=== PATIENT | male | born 1980 | race Caucasian/White ===

== ENCOUNTER 2019-04-13 03:16 | Emergency (ER) | payer OTHER ==
[2019-04-13] MEDS ORDERED: LIDOCAINE 1% W/EPI 1:100,000 MDV 50 ML VIAL ONE (04:13)
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
--- NOTE | 2019-04-13 04:58 | EDPHYS ---
Physician Documentation [facility] Name: Johnathan James Age: 38 yrs Sex: Male : 1980 Arrival Date: 04/13/2019 Time: 03:31 Bed 18 Private MD: ED Physician Js Humphrey HPI: 04/13 04:31 This 38 yrs old Male presents to ER via EMS with complaints of ankle injury, gs puncture wound r knee. 04:31 The patient presents with an injury. The complaints affect the anterior aspect of right gs ankle. Context: resulted from twisting of the extremity. Onset: The symptoms/episode began/occurred acutely. Modifying factors: The symptoms are alleviated by nothing. the symptoms are aggravated by movement. Associated signs and symptoms: Pertinent positives: puncture r knee on glass shards. Severity of symptoms: At their worst the symptoms were moderate, in the emergency department the symptoms are unchanged. The patient has not experienced similar symptoms in the past. Historical: - Allergies: 03:15 No Known Allergies; jb4 - Home Meds: 03:15 Levoxyl Oral [Active]; testosterone injection [Active]; calcitriol oral oral [Active]; jb4 - PMHx: 03:15 low testosterone; thyroid cancer; right ankle injury; jb4 - PSHx: 03:15 Thyroidectomy; jb4 - Immunization history:: Adult Immunizations up to date, Last tetanus immunization: up to date. - Social history:: Smoking status: Patient uses tobacco products, chewing tobacco, Patient uses alcohol, but reports only rare drinking. - Ebola Screening: : No symptoms or risks identified at this time. ROS: 04:31 All other systems are negative. gs Exam: 04:31 Head/Face: Normocephalic, atraumatic. Eyes: Pupils equal round and reactive to light, gs extra-ocular motions intact. Lids and lashes normal. Conjunctiva and sclera are non-icteric and not injected. Cornea within normal limits. Periorbital areas with no swelling, redness, or edema. ENT: Nares patent. No nasal discharge, no septal abnormalities noted. Tympanic membranes are normal and external auditory canals are clear. Oropharynx with no redness, swelling, or masses, exudates, or evidence of obstruction, uvula midline. Mucous membranes moist. Neck: Trachea midline, no thyromegaly or masses palpated, and no cervical lymphadenopathy. Supple, full range of motion without nuchal rigidity, or vertebral point tenderness. No Meningismus. Chest/axilla: Normal chest wall appearance and motion. Nontender with no deformity. No lesions are appreciated. Cardiovascular: Regular rate and rhythm with a normal S1 and S2. No gallops, murmurs, or rubs. Normal PMI, no JVD. No pulse deficits. Respiratory: Lungs have equal breath sounds bilaterally, clear to auscultation and percussion. No rales, rhonchi or wheezes noted. No increased work of breathing, no retractions or nasal flaring. Abdomen/GI: Soft, non-tender, with normal bowel sounds. No distension or tympany. No guarding or rebound. No evidence of tenderness throughout. Back: No spinal tenderness. No costovertebral tenderness. Full range of motion. 04:31 Neuro: Awake and alert, GCS 15, oriented to person, place, time, and situation. Cranial nerves II-XII grossly intact. Motor strength 5/5 in all extremities. Sensory grossly intact. Cerebellar exam normal. Normal gait. 04:31 Constitutional: The patient appears alert, awake. 04:31 Musculoskeletal/extremity: ROM: no acute changes, Circulation is intact in all extremities. Sensation intact. Joints: the right ankle displays swelling, tenderness. 04:31 Skin: injury, laceration(s), the wound is approximately 0.5 cm(s), with a depth of 0.25 cm(s), of the right elbow, the second wound is approximately 2 cm(s), with a depth of 1 cm(s), of the medial aspect of right knee. Vital Signs: 03:15 BP 130 / 86; Pulse 104; Resp 16; Temp 100.0(O); Pulse Ox 95% on R/A; Weight 139.71 kg jb4 (R); Height 5 ft. 10 in. (177.80 cm) (R); Pain 5/10; 04:30 BP 129 / 72; Pulse 96; Resp 16; Pulse Ox 96% on R/A; jb4 05:12 BP 133 / 79; Pulse 99; Resp 16; Temp 98.6(O); Pulse Ox 97% on R/A; jb4 03:15 Body Mass Index 44.19 (139.71 kg, 177.80 cm) jb4 Laceration: 04:53 Wound Repair of 2cm ( 0.8in ) subcutaneous laceration to medial aspect of right knee. gs Irregularly shaped.. Possible foreign body or glass noted.. Distal neuro/vascular/tendon intact. Anesthesia: Wound infiltrated with 3 mls of 1% lidocaine w/ Epi. Wound prep: Simple cleansing, Moderate cleansing, Wound irrigation by me, Particulate matter removal of glass, Copious irrigation. Skin closed with 1 4-0 Prolene using vertical mattress sutures and sterile technique. Dressed with 4x4's. Patient tolerated well. MDM: 03:38 Patient medically screened. gs 04:31 Differential diagnosis: sprain,laceration puncture, retained fb. Data reviewed: vital gs signs, nurses notes, radiologic studies, plain films, small shards on knee xray. 04:53 Counseling: I had a detailed discussion with the patient and/or guardian regarding: the gs historical points, exam findings, and any diagnostic results supporting the discharge/admit diagnosis. Response to treatment: the patient's symptoms have markedly improved after treatment, and as a result, I will discharge patient. 04/13 03:38 Order name: Ankle Right 3 View XRAY 04/13 03:38 Order name: Knee Right 3 View XRAY Administered Medications: 04:45 Drug: Lidocaine-Epinephrine -1%: (1:100,000) 5 ml {Note: administered by Ed provider.} jb4 Volume: 20 ml; Route: Infiltration; 05:14 Follow up: Response: No adverse reaction jb4 Disposition: 04/13/19 04:56 Discharged to Home. Impression: Sprain of ankle, Puncture wound with foreign body, right lower leg. - Condition is Stable. - Discharge Instructions: Ankle Sprain, Laceration Care, Adult. - Work release form, Medication Reconciliation Form, Thank You Letter, Antibiotic Education, Prescription Opioid Use form. - Follow up: Private Physician; When: 2 - 3 days; Reason: Re-evaluation by your physician. - Notes: sutures out 7-10 days Signatures: Dispatcher [employer] EDMS Yves Voss RN RN jb4 Js Humphrey MD MD Corrections: (The following items were deleted from the chart) 05:15 04:56 04/13/2019 04:56 Discharged to Home. Impression: Sprain of ankle; Puncture wound jb4 with foreign body, right lower leg. Condition is Stable. Forms are Medication Reconciliation Form, Thank You Letter, Antibiotic Education, Prescription Opioid Use. Follow up: Private Physician; When: 2 - 3 days; Reason: Re-evaluation by your physician. gs
--- NOTE | 2019-04-13 09:03 | RAD REPORT ---
EXAM DESCRIPTION: RAD - Ankle Right 3 View - 04/13/2019 4:20 am CLINICAL HISTORY: Ankle pain following trauma and twisting injury COMPARISON: None. FINDINGS: No fracture, dislocation or periosteal reaction. No joint effusion seen. No joint space na rrowing. Prominent for age plantar spur is present. There is a small spur at the Achilles attachment. No air or foreign body in the soft tissues. IMPRESSION: No fracture or acute bone findings seen. The calcaneus shows prominent plantar spur with small spur at the Achilles tendon attachment.
--- NOTE | 2019-04-13 09:06 | RAD REPORT ---
EXAM DESCRIPTION: RAD - Knee Right 3 View - 04/13/2019 4:20 am CLINICAL HISTORY: Fall, laceration anterior knee COMPARISON: None. FINDINGS: No fracture, dislocation or periosteal reaction.No joint effusion seen. No joint space tawana rowing. Puncture wound is evident in the soft tissues anterior to the patella tendon. There are soft tissue a ir densities deep to the patella tendon. Positioning in the patella is normal. Full-thickness disrupt ion of the patella tendon is not identifiable. On the lateral view there are several punctate foreign bodies in the laceration site along the anterior margin of the patella tendon. Plain film findings d o not indicate any extension into the joint space. IMPRESSION: No acute bone finding. Multiple punctate foreign bodies at the anterior margin of the puncture site. Soft tissue air densities are present superficial and deep to the patella tendon without evidence for a full-thickness patella tendon disruption. Intra-articular extension is not suspected on plain film . Clinical concerns for internal derangement, patella tendon injury or intra-articular extension of pun cture can be addressed with MR imaging.
== END 2019-04-13 05:15 | disposition home or self-care (01) ==
LOC: ER 03:16
PROC: 0JQN0ZZ Repair Right Lower Leg Subcutaneous Tissue and Fascia, Open Approach (ICD-10-PCS; principal; 2019-04-13)
DX: S51.011A Laceration without foreign body of right elbow, initial encounter (principal); S81.031A Puncture wound without foreign body, right knee, initial encounter; W01.110A Fall on same level from slipping, tripping and stumbling with subsequent striking against sharp glass, initial encounter; S93.401A Sprain of unspecified ligament of right ankle, initial encounter; X50.1XXA Overexertion from prolonged static or awkward postures, initial encounter
CPT/HCPCS: 99284

== ENCOUNTER 2019-10-27 11:53 | Emergency (ER) | payer OTHER ==
[2019-10-27] MEDS ORDERED: NA CHLORIDE 0.9% 1,000 ML ONE (12:41)
[2019-10-27 12:54] LABS: Urine Blood NEGATIVE (NEG); Urine Glucose 2+ (NEG); Urine Protein NEGATIVE (NEG); Urine pH 6.5 (5.0-7.0)
[2019-10-27 12:54] LABS: Absolute Lymphocytes (CBC) 1.9 K/uL (0.7-4.9); Basophils % 0.3 % (0-1.3); Hematocrit 42.7 % (39.6-49.0); Lymphocytes % 28.4 % (15.3-44.8); RBC Red Blood Cell Count 4.92 M/uL (4.33-5.43)
[2019-10-27 13:16] LABS: BUN Blood Urea Nitrogen 16 mg/dL (7-18); Bicarbonate 29 mmol/L (21-32); Potassium 3.7 mmol/L (3.5-5.1); Sodium Level 133 mmol/L (136-145)
[2019-10-27 13:18] LABS: Glucose Level 540 mg/dL (74-106)
[2019-10-27] MEDS ORDERED: INSULIN -REGULAR HUMAN 50 UNIT/0.5 ML ML ONE (13:37)
--- NOTE | 2019-10-27 14:55 | EDPHYS ---
Physician Documentation [facility] Name: Johnathan James Age: 39 yrs Sex: Male : 1980 Arrival Date: 10/27/2019 Time: 11:57 Bed 6 Private MD: ED Physician Perico Guerrier HPI: 10/27 12:51 This 39 yrs old Male presents to ER via Ambulatory with complaints of High kb Blood Sugar. 12:51 The patient or guardian reports hyperglycemia, polyphagia, polyuria. Onset: The kb symptoms/episode began/occurred 3 week(s) ago. Associated signs and symptoms: Pertinent positives: polydipsia, polyuria. Current symptoms: In the emergency department the patient's symptoms are unchanged from the initial presentation. The patient has not experienced similar symptoms in the past. The patient has been recently seen by a physician: earlier today, with similar presenting complaints, and was sent to the [facility] Emergency Department for further evaluation. Pt reports polyuria and polydipsia for 3 weeks. Went to the clinic today to figure out why and they checked his sugar which read "high." States they told him that meant it was over 600 and he needed to come to the ER. States "I don't feel bad." Reports he was prediabetic in the past and both parents have diabetes. Historical: - Allergies: 12:15 No Known Allergies; hb - Home Meds: 12:15 calcitriol Oral [Active]; Levoxyl Oral [Active]; testosterone injection [Active]; hb - PMHx: 12:15 low testosterone; right ankle injury; THYROID CANCER; hb - PSHx: 12:15 Thyroidectomy; hb - Immunization history:: Adult Immunizations up to date. - Social history:: Smoking status: Patient/guardian denies using tobacco. - Ebola Screening: : No symptoms or risks identified at this time. ROS: 12:50 Constitutional: Negative for fever, chills, and weight loss, ENT: Negative for injury, kb pain, and discharge, Neck: Negative for injury, pain, and swelling, Cardiovascular: Negative for chest pain, palpitations, and edema, Respiratory: Negative for shortness of breath, cough, wheezing, and pleuritic chest pain, Abdomen/GI: Negative for abdominal pain, nausea, vomiting, diarrhea, and constipation, Back: Negative for injury and pain, MS/Extremity: Negative for injury and deformity, Skin: Negative for injury, rash, and discoloration, Neuro: Negative for headache, weakness, numbness, tingling, and seizure. 12:50 Endocrine: Positive for polydipsia, polyuria. Exam: 12:50 Constitutional: This is a well developed, well nourished patient who is awake, alert, kb and in no acute distress. Head/Face: Normocephalic, atraumatic. ENT: Nares patent. No nasal discharge, no septal abnormalities noted. Tympanic membranes are normal and external auditory canals are clear. Oropharynx with no redness, swelling, or masses, exudates, or evidence of obstruction, uvula midline. Mucous membranes moist. Neck: Trachea midline, no thyromegaly or masses palpated, and no cervical lymphadenopathy. Supple, full range of motion without nuchal rigidity, or vertebral point tenderness. No Meningismus. Chest/axilla: Normal chest wall appearance and motion. Nontender with no deformity. No lesions are appreciated. Cardiovascular: Regular rate and rhythm with a normal S1 and S2. No gallops, murmurs, or rubs. Normal PMI, no JVD. No pulse deficits. Respiratory: Lungs have equal breath sounds bilaterally, clear to auscultation and percussion. No rales, rhonchi or wheezes noted. No increased work of breathing, no retractions or nasal flaring. Abdomen/GI: Soft, non-tender, with normal bowel sounds. No distension or tympany. No guarding or rebound. No evidence of tenderness throughout. Skin: Warm, dry with normal turgor. Normal color with no rashes, no lesions, and no evidence of cellulitis. MS/ Extremity: Pulses equal, no cyanosis. Neurovascular intact. Full, normal range of motion. Neuro: Awake and alert, GCS 15, oriented to person, place, time, and situation. Cranial nerves II-XII grossly intact. Motor strength 5/5 in all extremities. Sensory grossly intact. Cerebellar exam normal. Normal gait. Vital Signs: 12:15 BP 136 / 100; Pulse 79; Resp 16; Temp 97.1; Pulse Ox 95% on R/A; Weight 133.36 kg; hb Height 5 ft. 10 in. (177.80 cm); Pain 0/10; 13:39 BP 136 / 80; Pulse 70; Resp 17; Pulse Ox 97% on R/A; tw2 14:55 BP 127 / 82; Pulse 72; Resp 18; Temp 97.4; Pulse Ox 97% on R/A; ph 12:15 Body Mass Index 42.18 (133.36 kg, 177.80 cm) hb MDM: 12:17 Patient medically screened. kb 12:51 Data reviewed: vital signs, nurses notes. Data interpreted: Pulse oximetry: on room air kb is 95 %. Interpretation: normal. 14:52 Counseling: I had a detailed discussion with the patient and/or guardian regarding: the kb historical points, exam findings, and any diagnostic results supporting the discharge/admit diagnosis, lab results, the need for outpatient follow up, a family practitioner, to return to the emergency department if symptoms worsen or persist or if there are any questions or concerns that arise at home. 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 Educated on diabetic diet and starting metformin. 10/27 12:24 Order name: CBC with Diff; Complete Time: 13:00 kb 10/27 12:24 Order name: Basic Metabolic Panel; Complete Time: 13:31 kb 10/27 12:24 Order name: Hemoglobin A1c kb 10/27 12:24 Order name: Acetone, Serum; Complete Time: 13:31 kb 10/27 12:24 Order name: Glucose, Ancillary Testing; Complete Time: 12:33 EDMS 10/27 12:38 Order name: Urine Dipstick--Ancillary (enter results); Complete Time: 13:00 bd 10/27 12:24 Order name: IV Start; Complete Time: 12:41 kb 10/27 12:24 Order name: Urine Dipstick-Ancillary (obtain specimen); Complete Time: 12:41 kb 10/27 14:14 Order name: Blood Glucose Level; Complete Time: 14:55 kb 10/27 14:24 Order name: Hemoglobin A1c; Complete Time: 14:47 EDMS 10/27 14:33 Order name: Glucose, Ancillary Testing; Complete Time: 14:35 EDMS Administered Medications: 13:08 Drug: NS 0.9% 1000 ml Route: IV; Rate: 1000 ml; Site: right antecubital; ph 14:15 Follow up: Response: No adverse reaction; Blood sugar is lowered; IV Status: Completed ph infusion; IV Intake: 1000ml 13:38 Drug: Insulin Regular Human 5 units {Co-Signature: tw2 (Tori Miranda RN).} Route: IVP; ph Site: right antecubital; 14:55 Follow up: Response: No adverse reaction; Blood sugar is lowered ph Disposition: 10/28 07:16 Co-signature as Attending Physician, Perico Guerrier MD I agree with the assessment and kdr plan of care. Disposition: 10/27/19 14:54 Discharged to Home. Impression: Hyperglycemia, unspecified, Type 2 diabetes mellitus without complications. - Condition is Stable. - Discharge Instructions: Blood Glucose Monitoring, Adult, Hyperglycemia, [id number], Type 2 Diabetes Mellitus, Diagnosis, Adult, [id number]. - Prescriptions for Metformin 500 mg Oral Tablet - take 1 tablet by ORAL route 2 times per day for 30 days Take 1 tab with morning and evening meals; 60 tablet. - Medication Reconciliation Form, Thank You Letter, Antibiotic Education, Prescription Opioid Use, Work release form form. - Follow up: Emergency Department; When: As needed; Reason: Worsening of condition. Follow up: Private Physician; When: 2 - 3 days; Reason: Recheck today's complaints, Continuance of care, Re-evaluation by your physician. Signatures: Dispatcher [employer] Honey Alvarez, IVONE-Kareem SANP-Judd Rg, Perico Geronimo RN, MD MD kdr Hall, Patricia, RN RN ph Baxter, Heather, RN RN Tori Miranda RN tw2 Corrections: (The following items were deleted from the chart) 10/27 15:10 14:54 10/27/2019 14:54 Discharged to Home. Impression: Hyperglycemia, unspecified; Type sg 2 diabetes mellitus without complications. Condition is Stable. Forms are Medication Reconciliation Form, Thank You Letter, Antibiotic Education, Prescription Opioid Use. Follow up: Emergency Department; When: As needed; Reason: Worsening of condition. Follow up: Private Physician; When: 2 - 3 days; Reason: Recheck today's complaints, Continuance of care, Re-evaluation by your physician. kb
--- NOTE | 2019-10-27 14:55 | ER ---
Nurse's Notes [facility] Name: Johnathan James Age: 39 yrs Sex: Male : 1980 Arrival Date: 10/27/2019 Time: 11:57 Bed 6 Private MD: Diagnosis: Hyperglycemia, unspecified;Type 2 diabetes mellitus without complications Presentation: 10/27 12:12 Presenting complaint: Sent by PCP for BGL >600. Pt reports excessive thirst x 3 weeks hb and approx 25 pound weight loss over last month. Transition of care: patient was not received from another setting of care. Onset of symptoms was October 27, 2019. Risk Assessment: Do you want to hurt yourself or someone else? Patient reports no desire to harm self or others. Care prior to arrival: None. 12:12 Method Of Arrival: Ambulatory hb 12:12 Acuity: BLANCO 2 hb 12:23 Initial Sepsis Screen: Does the patient meet any 2 criteria? No. Patient's initial ph sepsis screen is negative. Does the patient have a suspected source of infection? No. Patient's initial sepsis screen is negative. Historical: - Allergies: 12:15 No Known Allergies; hb - Home Meds: 12:15 calcitriol Oral [Active]; Levoxyl Oral [Active]; testosterone injection [Active]; hb - PMHx: 12:15 low testosterone; right ankle injury; THYROID CANCER; hb - PSHx: 12:15 Thyroidectomy; hb - Immunization history:: Adult Immunizations up to date. - Social history:: Smoking status: Patient/guardian denies using tobacco. - Ebola Screening: : No symptoms or risks identified at this time. Screenin:17 Abuse screen: Denies threats or abuse. Denies injuries from another. Nutritional ph screening: No deficits noted. Tuberculosis screening: No symptoms or risk factors identified. Fall Risk None identified. Assessment: 12:41 General: Appears in no apparent distress. comfortable, well groomed, Behavior is calm, ph cooperative, appropriate for age, Denies fever, feeling ill. General: Reports increased thirst and urination x approx 3 weeks. Pain: Denies pain. Neuro: Level of Consciousness is awake, alert, obeys commands, Oriented to person, place, time, situation, Denies weakness dizziness. Cardiovascular: Denies chest pain, lightheadedness, nausea, shortness of breath, vomiting, Capillary refill < 3 seconds in bilateral fingers Patient's skin is warm and dry. Respiratory: Airway is patent Respiratory effort is even, unlabored, Respiratory pattern is regular, symmetrical. GI: Patient currently denies abdominal pain, diarrhea, nausea, vomiting. GI: Reports. : Reports urinary frequency. Derm: Skin is intact, Skin is pink, warm \T\ dry. Musculoskeletal: Circulation, motion, and sensation intact. Range of motion: intact in all extremities. 13:40 Reassessment: Patient appears in no apparent distress at this time. No changes from tw2 previously documented assessment. Patient and/or family updated on plan of care and expected duration. Pain level reassessed. Patient is alert, oriented x 3, equal unlabored respirations, skin warm/dry/pink. 15:05 Reassessment: Patient appears in no apparent distress at this time. Patient and/or ph family updated on plan of care and expected duration. Pain level reassessed. Patient is alert, oriented x 3, equal unlabored respirations, skin warm/dry/pink. Pt d/c home w/ script for Metformin, instructed to follow up w/ PCP. Vital Signs: 12:15 BP 136 / 100; Pulse 79; Resp 16; Temp 97.1; Pulse Ox 95% on R/A; Weight 133.36 kg; hb Height 5 ft. 10 in. (177.80 cm); Pain 0/10; 13:39 BP 136 / 80; Pulse 70; Resp 17; Pulse Ox 97% on R/A; tw2 14:55 BP 127 / 82; Pulse 72; Resp 18; Temp 97.4; Pulse Ox 97% on R/A; ph 12:15 Body Mass Index 42.18 (133.36 kg, 177.80 cm) hb ED Course: 11:57 Patient arrived in ED. mr 12:14 Triage completed. hb 12:15 Arm band placed on. hb 12:16 Jing Colvin, CURTIS is Primary Nurse. ph 12:17 Honey Li FNP-C is PHCP. kb 12:17 Perico Guerrier MD is Attending Physician. kb 12:23 Patient has correct armband on for positive identification. Placed in gown. Bed in low ph position. Call light in reach. bus monitor on. Pulse ox on. NIBP on. Door closed. Noise minimized. Warm blanket given. 12:43 Initial lab(s) drawn, by me, sent to lab. Inserted saline lock: 20 gauge in right ph antecubital area, using aseptic technique. Blood collected. 15:08 No provider procedures requiring assistance completed. IV discontinued, intact, sg bleeding controlled, No redness/swelling at site. Pressure dressing applied. Administered Medications: 13:08 Drug: NS 0.9% 1000 ml Route: IV; Rate: 1000 ml; Site: right antecubital; ph 14:15 Follow up: Response: No adverse reaction; Blood sugar is lowered; IV Status: Completed ph infusion; IV Intake: 1000ml 13:38 Drug: Insulin Regular Human 5 units {Co-Signature: tw2 (Tori Miranda RN).} Route: IVP; ph Site: right antecubital; 14:55 Follow up: Response: No adverse reaction; Blood sugar is lowered ph Intake: 14:15 IV: 1000ml; Total: 1000ml. ph Outcome: 14:54 Discharge ordered by . kb 15:08 Discharged to home ambulatory, with family. sg 15:08 Condition: good 15:08 Discharge instructions given to patient, family, Instructed on discharge instructions, follow up and referral plans. medication usage, safety practices, Demonstrated understanding of instructions, follow-up care, medications, Prescriptions given X 1. 15:10 Patient left the ED. sg Signatures: Honey Li, ENGINEERING CONSULTANT-C ENGINEERING CONSULTANT-Ckb Judd Forrester RN RN sg Rivera, Mary Jing Colvin RN RN Betty Woodard RN RN hb Wise, Tara, RN RN tw2 Tori Miranda RN tw2
[2019-10-28 01:31] VITALS: TEMP 97.1
[2019-10-28 01:33] VITALS: BP 136/80; O2SAT 97
== END 2019-10-27 15:10 | disposition home or self-care (01) ==
LOC: ER 11:53
DX: E11.65 Type 2 diabetes mellitus with hyperglycemia (principal); Z85.850 Personal history of malignant neoplasm of thyroid
CPT/HCPCS: 96361; 85025; 80048; 36415; 82010; 82947 ×2; 81003; 83036; 96374; 99284; J7030

== ENCOUNTER 2020-10-04 08:27 | Inpatient (IN) | payer OTHER ==
--- OUTSIDE RECORDS SUMMARY | 2020-10-04 08:30 | XMS REPORT | Continuity of Care Document ---
:1980 Author Organization [facility] t Address [address] [place] [address] Care Team Providers Name Role Phone Family Medicine Attending Clinician Unavailable Lab, [facility] Pob I Attending Clinician Unavailable Problems This patient has no known problems. Allergies, Adverse Reactions, Alerts This patient has no known allergies or adverse reactions. Medications This patient has no known medications. Procedures This patient has no known procedures. Encounters Start End Encounter Admission Attending Care Care Encounter Source Date/Time Date/Time Type Type Clinicians Facility Department ID 2020-03-31 2020-03-31 Telephone [facility] [id number] 00:00:00 00:00:00 Medicine MARYJANE [id number] [facility] [id number] 2020-03-29 2020-03-29 [facility], [facility] [id number] 13:11:45 13:21:45 Visit [facility] [id number] [place] [id number] [place] [id number] [address] Results This patient has no known results.
[2020-10-04] MEDS ORDERED: CALCIUM GLUCONATE 1 GM IVPB 1 GM/50 ML BAG IV ONE ×2 (09:02→09:55)
[2020-10-04 09:05] LABS: Absolute Lymphocytes (CBC) 2.4 K/uL (0.7-4.9); Basophils % 0.3 % (0-1.3); Hematocrit 40.9 % (39.6-49.0); Lymphocytes % 27.6 % (15.3-44.8); MPV 7.7 fL (7.6-11.3); RBC Red Blood Cell Count 4.67 M/uL (4.33-5.43)
[2020-10-04 09:33] LABS: Albumin 3.6 g/dL (3.4-5.0); Bilirubin Total 0.7 mg/dL (0.2-1.0); Potassium 3.1 mmol/L (3.5-5.1); Protein, Total 7.4 g/dL (6.4-8.2)
--- NOTE | 2020-10-04 09:45 | EDPHYS ---
Physician Documentation [facility] Name: Johnathan James Age: 40 yrs Sex: Male : 1980 Arrival Date: 10/04/2020 Time: 08:33 Bed 4 Private MD: ED Physician Perico Guerrier HPI: 10/04 08:39 This 40 yrs old Male presents to ER via Unassigned with complaints of kdr cramping, arms. 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 . Onset: The symptoms/episode began/occurred suddenly, just prior to arrival. Severity of symptoms: At their worst the symptoms were mild moderate in the emergency department the symptoms have improved mildly. The patient has experienced similar episodes in the past, a few times. The patient has not recently seen a physician. Historical: - Allergies: 11:57 calcitrol TID, unknown dosage.; ec1 - Home Meds: 11:56 Levoxyl 150 mcg Oral tab 3 tab once daily [Active]; Synjardy 1000 mg tab, takes 2 oral ec1 tab 2 tabs daily [Active]; calcium carbonate 600 mg (1,500 mg) oral tab 1,500 mg three times a day for Hypocalcemia [Active]; ozempic 1 mg weekly [Active]; - PMHx: 11:36 low testosterone; right ankle injury; THYROID CANCER; iw - PSHx: 11:36 Thyroidectomy; iw - Immunization history:: Last tetanus immunization: up to date. - Social history:: Smoking status: Patient denies any tobacco usage or history of. ROS: 08:39 Constitutional: Negative for fever, chills, and weight loss, Eyes: Negative for injury, kdr pain, redness, and discharge, Neck: Negative for injury, pain, and swelling, Cardiovascular: Negative for chest pain, palpitations, and edema, Respiratory: Negative for shortness of breath, cough, wheezing, and pleuritic chest pain, Abdomen/GI: Negative for abdominal pain, nausea, vomiting, diarrhea, and constipation, Back: Negative for injury and pain, : Negative for injury, bleeding, discharge, and swelling, Skin: Negative for injury, rash, and discoloration, Neuro: Negative for headache, weakness, numbness, tingling, and seizure activity. Psych: Negative for depression, anxiety, suicide ideation, homicidal ideation, and hallucinations, Allergy/Immunology: Negative for hives, rash, and allergies, Endocrine: Negative for neck swelling, polydipsia, polyuria, polyphagia, and marked weight changes, Hematologic/Lymphatic: Negative for swollen nodes, abnormal bleeding, and unusual bruising. 08:39 MS/extremity: Positive for pain, Muscle spasms in extremities - especially when a blood pressure. Exam: 08:39 Constitutional: This is a well developed, well nourished patient who is awake, alert, kdr and in no acute distress. Head/Face: Normocephalic, atraumatic. Eyes: Pupils equal round and reactive to light, extra-ocular motions intact. Lids and lashes normal. Conjunctiva and sclera are non-icteric and not injected. Cornea within normal limits. Periorbital areas with no swelling, redness, or edema. Neck: Trachea midline, no thyromegaly or masses palpated, and no cervical lymphadenopathy. Supple, full range of motion without nuchal rigidity, or vertebral point tenderness. No Meningismus. Chest/axilla: Normal chest wall appearance and motion. Nontender with no deformity. No lesions are appreciated. Cardiovascular: Regular rate and rhythm with a normal S1 and S2. No gallops, murmurs, or rubs. Normal PMI, no JVD. No pulse deficits. Respiratory: Lungs have equal breath sounds bilaterally, clear to auscultation and percussion. No rales, rhonchi or wheezes noted. No increased work of breathing, no retractions or nasal flaring. Abdomen/GI: Soft, non-tender, with normal bowel sounds. No distension or tympany. No guarding or rebound. No evidence of tenderness throughout. Back: No spinal tenderness. No costovertebral tenderness. Full range of motion. Skin: Warm, dry with normal turgor. Normal color with no rashes, no lesions, and no evidence of cellulitis. MS/ Extremity: Pulses equal, no cyanosis. Neurovascular intact. Full, normal range of motion. Neuro: Awake and alert, GCS 15, oriented to person, place, time, and situation. Cranial nerves II-XII grossly intact. Motor strength 5/5 in all extremities. Sensory grossly intact. Cerebellar exam normal. Normal gait. Psych: Awake, alert, with orientation to person, place and time. Behavior, mood, and affect are within normal limits. Vital Signs: 08:33 BP 124 / 67; Pulse 104; Resp 16; Temp 97.5; Pulse Ox 96% on R/A; Weight 120.2 kg; ec1 Height 5 ft. 10 in. (177.80 cm); 09:38 BP 108 / 46; Pulse 87; Resp 15; Pulse Ox 95% on R/A; tw2 10:30 BP 126 / 69; Pulse 69; Resp 17; Pulse Ox 99% on R/A; tw2 11:30 BP 136 / 62; Pulse 54; Resp 17; Pulse Ox 95% on R/A; tw2 12:30 BP 120 / 76; Pulse 74; Resp 18; Pulse Ox 98% on R/A; tw2 13:30 BP 116 / 68; Pulse 94; Resp 18; Pulse Ox 97% on R/A; tw2 14:30 BP 114 / 63; Pulse 79; Resp 17; Pulse Ox 99% on R/A; tw2 15:25 BP 122 / 69; Pulse 72; Resp 18; Pulse Ox 98% on R/A; tw2 08:33 Body Mass Index 38.02 (120.20 kg, 177.80 cm) ec1 MDM: 09:44 Patient medically screened. kdr 09:45 Data reviewed: vital signs, nurses notes, lab test result(s). Counseling: I had a kdr detailed discussion with the patient and/or guardian regarding: the historical points, exam findings, and any diagnostic results supporting the discharge/admit diagnosis, lab results, the need for outpatient follow up. 10/04 08:36 Order name: Comprehensive Metabolic Panel; Complete Time: 09:38 kdr 10/04 08:36 Order name: CBC with Diff; Complete Time: 09:33 kdr 10/04 10:28 Order name: Basic Metabolic Panel EDMS 10/04 10:28 Order name: Basic Metabolic Panel EDMS 10/04 10:28 Order name: CBC with Automated Diff EDMS 10/04 10:28 Order name: CBC with Automated Diff EDMS 10/04 10:28 Order name: Regular EDMS 10/04 11:16 Order name: COVID-19 jl7 10/04 11:43 Order name: Urine Dipstick--Ancillary (enter results) bd 10/04 13:04 Order name: Urine Dipstick-Ancillary; Complete Time: 14:29 [facility] 10/04 15:23 Order name: CORONAVIRUS [facility] 10/04 08:45 Order name: IV Start; Complete Time: 08:55 tw2 Administered Medications: 08:51 Drug: Calcium Gluconate 1 grams Route: IVPB; Infused Over: 60 mins; Site: left tw2 antecubital; 09:51 Follow up: Response: No adverse reaction; IV Status: Completed infusion jl7 09:45 Drug: Calcium Gluconate 1 grams Route: IVPB; Infused Over: 60 mins; Site: left jl7 antecubital; 10:45 Follow up: Response: No adverse reaction; IV Status: Completed infusion jl7 09:50 Drug: Potassium Chloride 40 mEq Route: PO; jl7 10:12 Follow up: Response: No adverse reaction jl7 Disposition: 10/04/20 09:44 Hospitalization ordered by Ferdinand Freitas for Observation. Preliminary diagnosis are Hypocalcemia, Hypokalemia. - Bed requested for Telemetry/MedSurg (observation). - Status is Observation. iw - Condition is Fair. - Problem is new. - Symptoms have improved. Signatures: Dispatcher [employer] EDNC Perico Guerrier MD MD kdr Jessica Whitman RN RN iw Navid Sharma PA PA cp Wise, Tara, RN RN tw2 Kaiser Carter RN RN jl7 Too Topete, RN RN ja1 Lashae Sterling, RN RN ec1 Corrections: (The following items were deleted from the chart) 10:23 09:44 Hospitalization Ordered by Roman Bajwa for Observation. Preliminary diagnosis kdr is Hypocalcemia; Hypokalemia. Bed requested for Telemetry/MedSurg (observation). Status is Observation. Condition is Fair. Problem is new. Symptoms have improved. kdr 13:07 11:36 Allergies: No Known Allergies; iw ec1 14:58 10:23 10/04/2020 09:44 Hospitalization Ordered by Ferdinand Freitas MD for Observation. ja1 Preliminary diagnosis is Hypocalcemia; Hypokalemia. Bed requested for Telemetry/MedSurg (observation). Status is Observation. Condition is Fair. Problem is new. Symptoms have improved. kdr 15:55 14:58 10/04/2020 09:44 Hospitalization Ordered by Ferdinand Freitas MD for Observation. iw Preliminary diagnosis is Hypocalcemia; Hypokalemia. Bed requested for Telemetry/MedSurg (observation). Status is Observation. Condition is Fair. Problem is new. Symptoms have improved. ja1
--- NOTE | 2020-10-04 09:45 | ER ---
Nurse's Notes [facility] Name: Johnathan James Age: 40 yrs Sex: Male : 1980 Arrival Date: 10/04/2020 Time: 08:33 Bed 4 Private MD: Diagnosis: Hypocalcemia;Hypokalemia Presentation: 10/04 08:33 Chief complaint: Patient states: Patient reports he has thyroid cancer when he was 20, ec1 had his thyroid removed and part of his parathyroid. His endocrine MD is Dr. Roland Sherman with [facility]. He stopped taking his supplemental calcium for a week. His his levells checked a week ago, found out he was low and has taken it again for the last week. Callcitrol and otc calcium. 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 He has a history of low calcium and also has a history of DM type 2, His EKG was ST, His bp was 119/66, pulse 116, respo 16, NKDA. He has not eaten today. His bgl was 216. ". Coronavirus screen: Client denies travel out of the [place] in the last 14 days. At this time, the client does not indicate any symptoms associated with coronavirus-19. Ebola Screen: Patient negative for fever greater than or equal to 101.5 degrees Fahrenheit, and additional compatible Ebola Virus Disease symptoms Patient denies exposure to infectious person. Patient denies travel to an Ebola-affected area in the 21 days before illness onset. Initial Sepsis Screen: Does the patient meet any 2 criteria? HR > 90 bpm. No. Patient's initial sepsis screen is negative. Does the patient have a suspected source of infection? No. Patient's initial sepsis screen is negative. Risk Assessment:. Onset of symptoms. 08:33 Method Of Arrival: EMS: [facility] ec1 08:33 Acuity: BLANCO 3 ec1 08:41 Risk Assessment: Do you want to hurt yourself or someone else? Patient reports no ec1 desire to harm self or others. Triage Assessment: 08:43 General: Appears in no apparent distress. uncomfortable, Behavior is calm, cooperative. ec1 Pain: Denies pain. Respiratory: No deficits noted. Breath sounds are clear bilaterally. Musculoskeletal: Reports Reports pain when his arms cramp. Denies pain at this time. Historical: - Allergies: 11:57 calcitrol TID, unknown dosage.; ec1 - Home Meds: 11:56 Levoxyl 150 mcg Oral tab 3 tab once daily [Active]; Synjardy 1000 mg tab, takes 2 oral ec1 tab 2 tabs daily [Active]; calcium carbonate 600 mg (1,500 mg) oral tab 1,500 mg three times a day for Hypocalcemia [Active]; ozempic 1 mg weekly [Active]; - PMHx: 11:36 low testosterone; right ankle injury; THYROID CANCER; iw - PSHx: 11:36 Thyroidectomy; iw - Immunization history:: Last tetanus immunization: up to date. - Social history:: Smoking status: Patient denies any tobacco usage or history of. Screenin:25 Abuse screen: Denies threats or abuse. Nutritional screening: No deficits noted. tw2 Tuberculosis screening: No symptoms or risk factors identified. Fall Risk None identified. Assessment: 08:35 General: Appears in no apparent distress. uncomfortable, Behavior is calm, cooperative. ec1 Neuro: No deficits noted. Level of Consciousness is awake, alert, obeys commands. Cardiovascular: Rhythm is sinus tachycardia. Respiratory: Airway is patent Respiratory effort is even, unlabored, Respiratory pattern is regular, lung sounds clear bilateral. GI: No signs and/or symptoms were reported involving the gastrointestinal system. : No signs and/or symptoms were reported regarding the genitourinary system. EENT: No signs and/or symptoms were reported regarding the EENT system. Derm: No signs and/or symptoms reported regarding the dermatologic system. Musculoskeletal: Range of motion: intact in all extremities, Reports Pt reports recent cramping in bilateral arms, denies cramping at this time. Denies pain at this time. 09:38 Reassessment: Patient appears in no apparent distress at this time. No changes from tw2 previously documented assessment. Patient and/or family updated on plan of care and expected duration. Pain level reassessed. Patient is alert, oriented x 3, equal unlabored respirations, skin warm/dry/pink. 10:30 Reassessment: Patient appears in no apparent distress at this time. No changes from tw2 previously documented assessment. Patient and/or family updated on plan of care and expected duration. Pain level reassessed. Patient is alert, oriented x 3, equal unlabored respirations, skin warm/dry/pink. 11:55 Reassessment: Patient appears in no apparent distress at this time. No changes from tw2 previously documented assessment. Patient and/or family updated on plan of care and expected duration. Pain level reassessed. Vital Signs: 08:33 BP 124 / 67; Pulse 104; Resp 16; Temp 97.5; Pulse Ox 96% on R/A; Weight 120.2 kg; ec1 Height 5 ft. 10 in. (177.80 cm); 09:38 BP 108 / 46; Pulse 87; Resp 15; Pulse Ox 95% on R/A; tw2 10:30 BP 126 / 69; Pulse 69; Resp 17; Pulse Ox 99% on R/A; tw2 11:30 BP 136 / 62; Pulse 54; Resp 17; Pulse Ox 95% on R/A; tw2 12:30 BP 120 / 76; Pulse 74; Resp 18; Pulse Ox 98% on R/A; tw2 13:30 BP 116 / 68; Pulse 94; Resp 18; Pulse Ox 97% on R/A; tw2 14:30 BP 114 / 63; Pulse 79; Resp 17; Pulse Ox 99% on R/A; tw2 15:25 BP 122 / 69; Pulse 72; Resp 18; Pulse Ox 98% on R/A; tw2 08:33 Body Mass Index 38.02 (120.20 kg, 177.80 cm) ec1 ED Course: 08:33 Patient arrived in ED. ec1 08:33 Placed in gown. Bed in low position. Call light in reach. cementing bulk material operator on. Pulse ox tw2 on. NIBP on. 08:35 Arm band placed on right wrist. ec1 08:36 Perico Guerrier MD is Attending Physician. kdr 08:39 Tori Miranda, CURTIS is Primary Nurse. tw2 08:41 Triage completed. ec1 08:45 Maintain EMS IV. 20 g RIGHT AC - infiltration noted at this time, removed intact, tw2 compression dressing applied.. 08:50 Inserted saline lock: 20 gauge in left antecubital area, using aseptic technique. Blood ec1 collected. 09:43 Roman Bajwa is Hospitalizing Provider. kdr 10:23 Ferdinand Freitas MD is Hospitalizing Provider. kdr 15:37 No provider procedures requiring assistance completed. Patient admitted, IV remains in iw place. Administered Medications: 08:51 Drug: Calcium Gluconate 1 grams Route: IVPB; Infused Over: 60 mins; Site: left tw2 antecubital; 09:51 Follow up: Response: No adverse reaction; IV Status: Completed infusion jl7 09:45 Drug: Calcium Gluconate 1 grams Route: IVPB; Infused Over: 60 mins; Site: left jl7 antecubital; 10:45 Follow up: Response: No adverse reaction; IV Status: Completed infusion jl7 09:50 Drug: Potassium Chloride 40 mEq Route: PO; jl7 10:12 Follow up: Response: No adverse reaction jl7 Outcome: 09:44 Decision to Hospitalize by Provider. kdr 15:37 Admitted to Med/surg accompanied by tech. iw 15:37 Admitted to Med/surg Report called to CURTIS Petit 15:37 Condition: good 15:37 Condition: good 15:37 Discharge instructions given to patient, Instructed on the need for admit, Demonstrated understanding of instructions. 15:55 Patient left the ED. iw Signatures: Perico Guerrier MD MD kdr Jessica Whitman, RN RN iw Tori Miranda RN RN tw2 Kaiser Carter RN RN jl7 Lashae Sterling RN RN ec1 Corrections: (The following items were deleted from the chart) 08:53 08:52 Inserted saline lock: 20 gauge in left antecubital area, using aseptic technique. ec1 Blood collected. ec1 13:07 11:36 Allergies: No Known Allergies; iw ec1
[2020-10-04] MEDS ORDERED: POTASSIUM CL SA 10 MEQ TAB PO ONE (10:01)
[2020-10-04] MEDS ORDERED: ACETAMINOPHEN 500 MG TAB PO PRN (10:25)
[2020-10-04] MEDS ORDERED: ONDANSETRON 4 MG/2 ML VIAL IV PRN (10:25)
[2020-10-04] MEDS ORDERED: NA CHLORIDE 0.9% 1,000 ML IV SCH ×2 (11:00→19:01)
[2020-10-04 13:04] LABS: Urine Blood NEGATIVE (NEG); Urine Glucose 2+ (NEG); Urine Protein NEGATIVE (NEG); Urine Specific Gravity 1.015 (1.005-1.030); Urine pH 6.5 (5.0-7.0)
[2020-10-04 15:40] LABS: Magnesium 2.5 mg/dL (1.8-2.4); Potassium 3.4 mmol/L (3.5-5.1)
[2020-10-04 16:06] VITALS: BMI 38.0
[2020-10-04] MEDS ORDERED: CALCIUM GLUC 10% INJ 9.3 MEQ in NA CHLORIDE 0.9% 100 ML IV ONE (18:00)
[2020-10-04] MEDS ORDERED: CALCIUM GLUC 10% INJ 9.3 MEQ in NA CHLORIDE 0.9% 100 ML IV PRN (18:22)
[2020-10-05 00:52] LABS: Potassium 3.5 mmol/L (3.5-5.1)
[2020-10-05 05:07] LABS: Absolute Lymphocytes (CBC) 2.7 K/uL (0.7-4.9); Basophils % 0.6 % (0-1.3); Hematocrit 37.9 % (39.6-49.0); Lymphocytes % 32.5 % (15.3-44.8); MPV 7.3 fL (7.6-11.3); RBC Red Blood Cell Count 4.38 M/uL (4.33-5.43)
[2020-10-05 05:51] LABS: Potassium 3.8 mmol/L (3.5-5.1)
[2020-10-05] MEDS ORDERED: CALCIUM GLUC 10% INJ 9.3 MEQ in NA CHLORIDE 0.9% 100 ML IV ONE (06:45)
--- NOTE | 2020-10-05 07:50 | HP ---
Date of Admission: 10/04/2020 Chief Complaint: Cramps. 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 He immediately requested to be federica t to the emergency room via ambulance after he was evaluated in the ER. His blood work was done reve aling significantly low calcium level of 6.1, and he was started on IV calcium replacement therapy an d I was contacted requesting admission to the hospital. By the time I saw him in the evening, he was back to his normal self, no cramping. The patient had surgery in the form of thyroidectomy for thyr oid cancer in the past and during this time, he says that he also ended up losing his parathyroid gla nd and he has one parathyroid gland which is not functioning well, so he is on chronic rep lacement therapy, but for last month to month and a half, he stopped taking it for no obvious reasons . He goes to one of the local clinic for testosterone injection therapy and as part of his blood wor k through this clinic about 1 week ago, he was told that his calcium level was low and about a month prior to this hospital admission, he had his routine blood work done with his e learning specialist and he was told to have normal calcium level at that time. The patient sees his e learning specialist on a regula r basis for all his medical management and he sees me only on emergency basis for any acute illnesses . Otherwise, he does not see me for his routine health care. Allergies: NO KNOWN ALLERGIES. Medications: Takes levothyroxine 150 mcg, he takes 3 tablets daily, calcitriol 0.5 mcg, takes 1 tabl et 3 times a day, and Synjardy 1 tablet 2 times a day. He is also taking testosterone replacement th erapy. Review of Systems: Musculoskeletal: As mentioned above. All other systems reviewed and negative. 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 Also, type 2 diabetes mellitus. Past Surgical History: Thyroidectomy. Family History: Mother with diabetes mellitus. Allergies: TO WATERMELON CAUSING ITCHING, BUT NO KNOWN ALLERGIES TO ANY MEDICATIONS. Social History: Negative for smoking, alcohol use. Physical Examination: Vital Signs: When he came into emergency room, blood pressure 124/67, respiratory rate 16, pulse 104 , temperature 97.5, oxygen saturation 96%. Weight 120.2 kg, height 5 feet 10 inches. General: Awake, alert, oriented, not in distress. HEENT: Head atraumatic, normocephalic. Conjunctivae nonerythematous. Sclerae white. Mouth, no thr ush or edema noted. Ears/Nose, no mass, lesion, discharge noted. Neck: Supple. No JVD, lymph nodes, bruit, thyromegaly noted. Lungs: Bilateral good equal air entry. Clear to auscultation. No rhonchi. No rales. Heart: Normal heart sounds, no murmur or gallop. Abdomen: Soft, bowel sounds normal. No guarding, rigidity, tenderness, mass, hepatosplenomegaly, dis tention, or bruit noted. Extremities: No leg edema. No calf tenderness. Skin: No rash, ulcer, cellulitis. Lymphatics: No lymph node enlargement in neck, supraclavicular, infraclavicular region. Neuro: No focal neurological deficit. Chest: Unremarkable. External Genitalia: Deferred. Rectal: Deferred. Laboratory Data: Initial sodium 140, potassium 3.1, chloride 104, bicarb 21, BUN 16, creatinine 1.62 , glucose 209. Liver function tests unremarkable. Calcium 6.1. Urinalysis negative. White count 8 .6, hemoglobin 14, platelets 366. The patient was given potassium chloride 40 mEq p.o. and calcium g luconate IV x2 doses and repeat calcium in the evening hours was 6.8, potassium 3.4, and creatinine 1 .25. Impression: 1.Hypocalcemia. 2.Hypothyroidism, postsurgical. 3.Thyroid cancer. 4.Type 2 diabetes mellitus. Plan: We will go ahead and admit the patient to hospital for further evaluation and management of th is problem. The patient had volume depletion and IV fluid was started in the emergency room. His cr eatinine on the repeat blood work looks better than before. We will continue IV fluid, but reduce ra te to 50 cc/hour. After the second blood work, another dose of IV calcium was ordered and I have ask ed nursing staff to repeat blood work around midnight and if the calcium level is less than 8.5, then to give the third dose of calcium replacement therapy through IV per order. I will see him tomorrow morning for followup. The patient was advised to take his calcium replacement therapy as per instru ction on a regular basis. PAM/MERI Voice ID: [id number]
[2020-10-05 08:15] VITALS: BP 126/69; TEMP 97.9
[2020-10-05 09:55] VITALS: O2SAT 97
--- NOTE | 2020-10-06 07:33 | DS ---
Date of Discharge: 10/05/2020 Disposition: Discharged to go home. Physical Examination: HEENT: Unremarkable. LUNGS: Clear to auscultation. HEART: Sounds normal. ABDOMEN: Soft. Bowel sounds normal. No guarding, rigidity, tenderness, or distention. EXTREMITIES: No leg edema. Laboratory Data: Today, white count 8.4, hemoglobin 13.3, platelets 280. Sodium 143, potassium 3.8, chloride 109, bicarb 28, BUN 12, creatinine 1.17, glucose 92, and calcium level 7.2 this morning. H is initial calcium level was 6.1 when he came in with potassium 3.1. Final Diagnoses: 1.Hypocalcemia. 2.Hypokalemia. 3.Anemia, unspecified. 4.Hypothyroidism, postsurgical. 5.Thyroid cancer. 6.Hypoparathyroidism. 7.Type 2 diabetes mellitus. Hospital Course: This is a 40-year-old male patient who was admitted to the hospital with muscle scratch brusher mps. Please see dictated H and P for more information. Patient has history of hypocalcemia and hypo parathyroidism and he stopped taking his calcium supplement. While he was exercising, all of a sudde n, he started to have severe cramping involving his both hands and neck and as soon as he had this pr oblem, he realized that it was likely due to low calcium level because he had one such experience a f ew years ago when he was first diagnosed with this problem. He was brought into emergency room. Fur ther evaluation revealed a very low calcium level of 6.1. IV calcium replacement dose was started an d the patient's muscle cramp problem resolved after he came into the hospital. Has not had any recur rence. He was advised to take his calcium supplement upon discharge on a regular basis the way he wa s taking before per instruction from his healthcare account manager. The patient sees Dr. Sherman, who is his en docrinologist, on a regular basis and gets all his medical problems managed by this healthcare account manager. He uses me only for acute visit. His last blood work this morning on the day of discharge was showi ng calcium 7.2, and he was given another IV calcium replacement dose after this and subsequently, he was discharged to go home. He was instructed to follow up with his healthcare account manager next week and als o to get blood work done for monitoring of calcium level next week with his healthcare account manager. Patient to take his calcium replacement as per instruction from his healthcare account manager and he tells me that he takes 3 tablets by mouth 3 times a day and he will restart that. PAM/MODL Voice ID: [id number] Report ID: [id number]
== END 2020-10-05 10:59 | disposition home or self-care (01) | DRG 641 ==
LOC: ER 08:27 → SUPCPDRO 08:27 → ERHOLD 10:27 → 4TH 15:29
PROVIDERS: ADMIT Internal Medicine; ATTEND Internal Medicine
DX: E83.51 Hypocalcemia (principal); E03.9 Hypothyroidism, unspecified; E86.9 Volume depletion, unspecified; D64.9 Anemia, unspecified; E87.6 Hypokalemia; E11.9 Type 2 diabetes mellitus without complications; Z85.850 Personal history of malignant neoplasm of thyroid; Z88.8 Allergy status to other drugs, medicaments and biological substances; Z79.899 Other long term (current) drug therapy; Z91.018 Allergy to other foods; Z20.828 Contact with and (suspected) exposure to other viral communicable diseases
CPT/HCPCS: 36415; 80048; 80053; 81003; 82947; 83735; 85025; 96365; 96366; 99285; J0610; J7030; U0002